=== PATIENT | male | born 1930 | race Caucasian/White ===

== ENCOUNTER → 2016-07-21 | Outpatient (CLI) | payer MEDICARE, BC ==
[~2016-07-21] MED LIST: ADVICOR; ADVIL200 MG; AMLODIPINE5 MG PO; ANTIVERT 25MG25 MG PO; ASPI81EC PO; ASPI81EC86 PO; ASPI81TA; ASPIRIN 32325 MG/TA1 PO; ASPIRIN 32325 MG/TAB PO; ASPIRIN E.C. 8181 MG PO; BENAZEPRIL HCT1 TAB PO; BENAZEPRIL PO; CEPHALEXIN500 M1 PO; CIPRO 500MG TA500 MG PO; COQ(10)1010 MG PO; EPA FISH OIL1000 MG PO; FISH OIL 1000MG1 CAP PO; HCTZ PO; IMDUR 60MG60 MG/TAB PO; IMDUR60 MG PO; JANUVIA25 MG PO; K-TAB10 MEQ PO; KLOR-CON 1010 MEQ PO; LISINOPRIL/HCTZ1 TA1 PO; LISINOPRIL10 MG PO; LOMOTIL 0.025 M1 TAB PO; LOPID 600M600 MG/TAB PO; LOPRESSOR 225 MG/TAB PO; LOPRESSOR PO; LORTAB 5/500 501 TAB PO; MAXIDE; MAXZIDE; MAXZIDE 50 MG-71 TAB PO; MECLIZINE HCL25 M1 PO; MECLIZINE25 MG PO; METOPROLOL SUCC25 M1 PO; MICRO-K 1010 MEQ PO; MULTAQ400 MG PO; NIACIN500 M4 PO; NIASPAN500 MG PO; NITROSTAT0.4 MG/TAB SL; NORCO 325 MG-51 TAB PO; ONGLYZA2.5 MG PO; OSTEO-BI-FLEX 21 TAB PO; PERCOCET 325 MG1 TA2 PO; PLAVIX 75MG TAB75 MG PO; PRADAXA 150MG150 MG PO; PRINZIDE 12.5 M1 TA1 PO; TAMBOCOR 1100 MG/TAB PO; TOPROL XL 25MG25 MG PO; TOPROL XL 50MG50 MG PO; TRIAMTERENE/HCT1 TA2 PO; TRILIPIX 135MG; TRILIPIX45 MG PO; TYLENOL 325MG325 MG PO; TYLENOL 500MG500 MG PO; VALIUM 2MG T2 MG/TAB PO; VITAMIN B121000 MCG PO; VITAMIN D2000 I1 PO; ZOCOR 20MG20 MG PO; ZOCOR20 MG PO; ZOFRAN 4MG T4 MG/TAB PO; [UNRECOGNIZED DRUG - CODE]
== END ==
LOC: COL.RAD 08:26
DX: M25.552 Pain in left hip (principal)
CPT/HCPCS: J3301; Q9967

== ENCOUNTER → 2016-08-27 | Outpatient (CLI) | payer MEDICARE, BC | LOC: COL.RAD 11:18 | DX: M25.552 Pain in left hip (principal) | CPT/HCPCS: J3301; Q9967 ==

== ENCOUNTER 2017-03-09 16:20 | Inpatient (IN) | payer MEDICARE, BC ==
[~2017-03-09] VITALS: Ht 180.3 cm; Wt 95.7 kg
[2017-03-09] VITALS (172 sets, daily range): BP systolic 117–129; BP diastolic 80–91; PULSE 60–120; TEMP 97.9; O2SAT 90–99
[2017-03-09 17:14] LABS: BASO # 0.1 (0.0-0.2); BASO % 0.8 % (0.0-2.0); EOS # 0.1 (0.0-0.7); EOS % 0.7 % (0-4.0); GRAN # 5.7 (1.4-6.5); GRAN % 67.4 % (42.2-75.2); HEMATOCRIT 37.1 % (42.0-52.0); HEMOGLOBIN 12.8 g/dl (13.5-18.0); LYMPH # 1.6 (1.2-3.4); LYMPH % 18.6 % (20.0-51.0); MEAN CELL VOLUME 94 fl (80.0-100.0); MEAN CORPUSCULAR HEMOGLOBIN 32 pg (27.0-31.0); MEAN CORPUSCULAR HGB CONC 35 g/dl (33.0-37.0); MEAN PLATELET VOLUME 10.7 fl (7.4-10.4); PLATELET COUNT 219 K/mm3 (130-400); RED BLOOD COUNT 3.95 M/mm3 (4.20-5.60); REDCELL DISTRIBUTION WIDTH-CV 13.2 % (11.5-14.5); WHITE BLOOD COUNT 8.5 K/mm3 (4.8-10.8)
[2017-03-09 17:17] LABS: INR 1.2 (0.8-3.0); PROTHROMBIN TIME 12.9 SECONDS (9.7-12.8)
[2017-03-09 17:20] LABS: PARTIAL THROMBOPLASTIN TIME 48.1 SECONDS (26.0-37.0)
[2017-03-09 17:25] LABS: ADJUSTED CALCIUM 10.2 mg/dL (8.4-10.2); BILIRUBIN,TOTAL 0.7 mg/dL (0.0-1.0); CALCIUM 10.2 mg/dL (8.4-10.2); CREATININE, serum 1.63 mg/dL (0.66-1.25); MAGNESIUM 1.7 mg/dL (1.6-2.3); POTASSIUM 3.6 mmol/L (3.4-5.0); TOTAL PROTEIN 6.9 gm/dL (6.4-8.2)
[2017-03-09 17:41] LABS: TROPONIN-I 0.073 ng/mL (0.000-0.034)
[2017-03-10] VITALS (470 sets, daily range): BP systolic 99–138; BP diastolic 63–98; PULSE 59–120; TEMP 97.7–98.6; O2SAT 88–100
[2017-03-10 05:31] LABS: BASO % 0.6 % (0.0-2.0); EOS # 0.1 (0.0-0.7); EOS % 1.8 % (0-4.0); GRAN # 3.9 (1.4-6.5); GRAN % 62.6 % (42.2-75.2); LYMPH # 1.4 (1.2-3.4); LYMPH % 21.9 % (20.0-51.0); MEAN CELL VOLUME 96 fl (80.0-100.0); MEAN CORPUSCULAR HGB CONC 33 g/dl (33.0-37.0); MONO # 0.8 (0.1-0.6); MONO % 12.5 % (1.7-9.3); PLATELET COUNT 208 K/mm3 (130-400); RED BLOOD COUNT 3.69 M/mm3 (4.20-5.60); REDCELL DISTRIBUTION WIDTH-CV 13.2 % (11.5-14.5); WHITE BLOOD COUNT 6.3 K/mm3 (4.8-10.8)
[2017-03-10 05:33] LABS: PH 5 (5-8); SQUAMOUS EPITHELIAL None Seen /hpf; URINE APPEARANCE Clear; URINE BACTERIA None Seen /hpf; URINE BILIRUBIN Negative (NEGATIVE); URINE BLOOD Negative (NEGATIVE); URINE COLOR Yellow; URINE GLUCOSE Negative (NEGATIVE); URINE KETONE Negative (NEGATIVE); URINE RBC None Seen /hpf; URINE UROBILINOGEN Negative (NEGATIVE); URINE WBC 0-2 /hpf
[2017-03-10 05:37] LABS: CALCIUM 9.7 mg/dL (8.4-10.2); CREATININE, serum 1.51 mg/dL (0.66-1.25); MAGNESIUM 2.3 mg/dL (1.6-2.3); PHOSPHOROUS 3.7 mg/dL (2.5-4.5); POTASSIUM 3.9 mmol/L (3.4-5.0)
[2017-03-10 05:40] LABS: HEMATOCRIT 35.4 % (42.0-52.0); HEMOGLOBIN 11.8 g/dl (13.5-18.0); MEAN CORPUSCULAR HEMOGLOBIN 32 pg (27.0-31.0)
[2017-03-11 00:58] VITALS: BP 134/67; PULSE 66; TEMP 97.3
[2017-03-11 04:08] VITALS: BP 150/81; PULSE 69; TEMP 98.1
[2017-03-11 08:18] VITALS: BP 126/67; PULSE 61; TEMP 98.2
[2017-03-11 12:07] VITALS: BP 130/72; PULSE 61; TEMP 98.4
== END 2017-03-11 16:20 | disposition home or self-care (01) | DRG 282 ==
LOC: COL.ER 16:20 → ICU 18:25 → MEDICAL 03-10 14:50
PROVIDERS: Emergency Medicine; Internal Medicine
DX: I48.0 Paroxysmal atrial fibrillation (principal); I21.4 Non-ST elevation (NSTEMI) myocardial infarction; I12.9 Hypertensive chronic kidney disease with stage 1 through stage 4 chronic kidney disease, or unspecified chronic kidney disease; E11.22 Type 2 diabetes mellitus with diabetic chronic kidney disease; N18.3 Chronic kidney disease, stage 3 (moderate); Z95.0 Presence of cardiac pacemaker; Z87.891 Personal history of nicotine dependence; Z79.4 Long term (current) use of insulin
CPT/HCPCS: 99223-AI; 99233-AI; 99239; J3475; J7030; J7040; J7050

== ENCOUNTER → 2017-03-09 | Outpatient (CLI) | payer MEDICARE, BC ==
[2017-03-09 11:07] LABS: CALCIUM 10.3 mg/dL (8.4-10.2); CREATININE, serum 1.64 mg/dL (0.66-1.25); MAGNESIUM 1.7 mg/dL (1.6-2.3); POTASSIUM 3.7 mmol/L (3.4-5.0)
[2017-03-09 11:36] LABS: THYROID STIMULATING HORMONE 1.01 uIU/mL (0.465-4.680)
== END ==
LOC: COL.LAB 09:44
PROVIDERS: Nurse Practitioner
DX: I48.91 Unspecified atrial fibrillation (principal)

== ENCOUNTER → 2017-04-04 | Outpatient (CLI) | payer MEDICARE, BC | LOC: SUN.DIA 08:34 | DX: E11.21 Type 2 diabetes mellitus with diabetic nephropathy (principal); E78.5 Hyperlipidemia, unspecified; I67.9 Cerebrovascular disease, unspecified; Z68.30 Body mass index [BMI] 30.0-30.9, adult; Z71.3 Dietary counseling and surveillance; Z87.891 Personal history of nicotine dependence | CPT/HCPCS: G0108 ==

== ENCOUNTER 2017-05-31 07:51 | Emergency (ER) | payer MEDICARE, BC ==
[~2017-05-31] VITALS: Ht 180.3 cm; Wt 99.1 kg
[2017-05-31 07:54] VITALS: TEMP 97
[2017-05-31 08:26] LABS: BASO # 0.1 (0.0-0.2); BASO % 1.5 % (0.0-2.0); EOS # 0.1 (0.0-0.7); EOS % 2.8 % (0-4.0); GRAN # 2.5 (1.4-6.5); GRAN % 53.6 % (42.2-75.2); HEMATOCRIT 40.4 % (42.0-52.0); HEMOGLOBIN 13.8 g/dl (13.5-18.0); LYMPH # 1.3 (1.2-3.4); LYMPH % 27.9 % (20.0-51.0); MEAN CELL VOLUME 96 fl (80.0-100.0); MEAN CORPUSCULAR HEMOGLOBIN 33 pg (27.0-31.0); MEAN CORPUSCULAR HGB CONC 34 g/dl (33.0-37.0); MONO # 0.6 (0.1-0.6); MONO % 13.8 % (1.7-9.3); PLATELET COUNT 255 K/mm3 (130-400); RED BLOOD COUNT 4.23 M/mm3 (4.20-5.60); WHITE BLOOD COUNT 4.6 K/mm3 (4.8-10.8)
[2017-05-31 08:33] LABS: ADJUSTED CALCIUM 9.9 mg/dL (8.4-10.2); ALBUMIN 4.4 gm/dL (3.5-5.0); BILIRUBIN,TOTAL 0.6 mg/dL (0.0-1.0); CALCIUM 10.2 mg/dL (8.4-10.2); CREATININE, serum 1.45 mg/dL (0.66-1.25); POTASSIUM 3.7 mmol/L (3.4-5.0); TOTAL PROTEIN 7.3 gm/dL (6.4-8.2)
[2017-05-31] MEDS ORDERED: PACERONE200 MG PO (08:39)
[2017-05-31] MEDS ORDERED: ELIQUIS 2.5 PO (08:41)
[2017-05-31] MEDS ORDERED: LOPID 600M600 MG/TAB PO (08:41)
[2017-05-31] MEDS ORDERED: IMDUR 60MG60 MG/TAB PO (08:42)
[2017-05-31] MEDS ORDERED: PRINZIDE 12.5 M1 TA1 PO (08:43)
[2017-05-31] MEDS ORDERED: GLUCOPHAGE XR500 M1 PO (08:44)
[2017-05-31] MEDS ORDERED: LOPRESSOR 550 MG/TAB PO (08:44)
[2017-05-31] MEDS ORDERED: TYLENOL 500MG500 MG PO (08:46)
[2017-05-31] MEDS ORDERED: ASPIRIN E.C. 8181 MG PO (08:46)
[2017-05-31] MEDS ORDERED: OMEGA-31 SGL PO (08:48)
[2017-05-31] MEDS ORDERED: THE MEDICINE S200 M2 PO (08:48)
[2017-05-31] MEDS ORDERED: CALCIUM CITRATE1 TA1 PO (08:51)
[2017-05-31] MEDS ORDERED: MOTRIN 200200 MG/TAB PO (08:51)
[2017-05-31] MEDS ORDERED: B-12 500 MCG PO (08:52)
[2017-05-31] MEDS ORDERED: MASON NATURAL2000 IU PO (08:52)
[2017-05-31 09:02] LABS: C-REACTIVE PROTEIN < 0.5 mg/dL (0.0-0.9); TROPONIN-I < 0.012 ng/mL (0.000-0.034)
[2017-05-31] MEDS ORDERED: MEDROL 4MG DOSPA4 MG PO (09:26)
[2017-05-31 09:45] VITALS: BP 148/89; PULSE 59
== END 2017-05-31 09:46 | disposition home or self-care (01) ==
LOC: COL.ER 07:51
PROVIDERS: Family Medicine
DX: M50.30 Other cervical disc degeneration, unspecified cervical region (principal); M48.02 Spinal stenosis, cervical region; I10 Essential (primary) hypertension

== ENCOUNTER 2017-08-15 20:45 | Emergency (ER) | payer MEDICARE, BC ==
[~2017-08-15] VITALS: Ht 177.8 cm; Wt 99.1 kg
[~2017-08-15 20:45] MED LIST changes: +B-12 500 MCG PO; +CALCIUM CITRATE1 TA1 PO; +ELIQUIS 2.5 PO; +GLUCOPHAGE XR500 M1 PO; +LOPRESSOR 550 MG/TAB PO; +MASON NATURAL2000 IU PO; +MEDROL 4MG DOSPA4 MG PO; +MOTRIN 200200 MG/TAB PO; +OMEGA-31 SGL PO; +PACERONE200 MG PO; +THE MEDICINE S200 M2 PO
[2017-08-15 20:48] VITALS: TEMP 98
[2017-08-15 21:44] LABS: BASO # 0.1 (0.0-0.2); BASO % 0.9 % (0.0-2.0); EOS # 0.1 (0.0-0.7); EOS % 1.3 % (0-4.0); GRAN # 4.6 (1.4-6.5); GRAN % 66.1 % (42.2-75.2); HEMATOCRIT 40.2 % (42.0-52.0); HEMOGLOBIN 13.7 g/dl (13.5-18.0); LYMPH # 1.3 (1.2-3.4); LYMPH % 18.4 % (20.0-51.0); MEAN CELL VOLUME 96 fl (80.0-100.0); MEAN CORPUSCULAR HEMOGLOBIN 33 pg (27.0-31.0); MEAN CORPUSCULAR HGB CONC 34 g/dl (33.0-37.0); MEAN PLATELET VOLUME 10.1 fl (7.4-10.4); MONO # 0.9 (0.1-0.6); MONO % 12.9 % (1.7-9.3); PLATELET COUNT 220 K/mm3 (130-400); RED BLOOD COUNT 4.18 M/mm3 (4.20-5.60); REDCELL DISTRIBUTION WIDTH-CV 13.3 % (11.5-14.5)
[2017-08-15 21:55] LABS: ALANINE AMINOTRANSFERASE 24 U/L (21-72); ALBUMIN 4.2 gm/dL (3.5-5.0); ALKALINE PHOSPHATASE 86 U/L (50-136); ANION GAP 14 mmol/L (7-16); AST,SGOT 16 U/L (15-37); BILIRUBIN,TOTAL 0.4 mg/dL (0.0-1.0); BLOOD UREA NITROGEN 30 mg/dL (9-20); CALCIUM 9.6 mg/dL (8.4-10.2); CARBON DIOXIDE 21 mmol/L (22-30); CHLORIDE 107 mmol/L (98-107); CREATININE, serum 1.42 mg/dL (0.66-1.25); GLUCOSE 117 mg/dL (74-106); POTASSIUM 3.5 mmol/L (3.4-5.0); SODIUM 141 mmol/L (137-145); TOTAL PROTEIN 7.2 gm/dL (6.4-8.2)
[2017-08-15 22:07] LABS: TROPONIN-I < 0.012 ng/mL (0.000-0.034)
[2017-08-15 22:24] VITALS: BP 159/84; PULSE 60
[2017-08-15] MEDS ORDERED: AMOXICILLIN 50500 MG PO (22:47)
[2017-08-15] MEDS ORDERED: NORCO 325 MG-51 TAB PO (22:47)
== END 2017-08-15 23:01 | disposition home or self-care (01) ==
LOC: COL.ER 20:45
PROVIDERS: Emergency Medicine
DX: K08.89 Other specified disorders of teeth and supporting structures (principal); I10 Essential (primary) hypertension; E11.9 Type 2 diabetes mellitus without complications; E78.5 Hyperlipidemia, unspecified; E78.00 Pure hypercholesterolemia, unspecified; Z95.5 Presence of coronary angioplasty implant and graft; Z95.1 Presence of aortocoronary bypass graft; Z79.82 Long term (current) use of aspirin; Z79.84 Long term (current) use of oral hypoglycemic drugs

== ENCOUNTER 2017-08-31 03:34 | Emergency (ER) | payer MEDICARE, BC ==
[~2017-08-31] VITALS: Ht 177.8 cm; Wt 99.1 kg
[~2017-08-31 03:34] MED LIST changes: +AMOXICILLIN 50500 MG PO
[2017-08-31 03:38] VITALS: TEMP 98
[2017-08-31 04:14] LABS: BASO # 0.1 (0.0-0.2); EOS # 0.1 (0.0-0.7); EOS % 1.1 % (0-4.0); GRAN # 4.8 (1.4-6.5); GRAN % 66.5 % (42.2-75.2); HEMATOCRIT 38.2 % (42.0-52.0); LYMPH # 1.3 (1.2-3.4); LYMPH % 17.9 % (20.0-51.0); MEAN CELL VOLUME 96 fl (80.0-100.0); MEAN CORPUSCULAR HEMOGLOBIN 33 pg (27.0-31.0); MEAN CORPUSCULAR HGB CONC 34 g/dl (33.0-37.0); MEAN PLATELET VOLUME 10.1 fl (7.4-10.4); MONO % 13.4 % (1.7-9.3); PLATELET COUNT 215 K/mm3 (130-400); REDCELL DISTRIBUTION WIDTH-CV 13.2 % (11.5-14.5)
[2017-08-31 04:24] LABS: ALBUMIN 4.1 gm/dL (3.5-5.0); BILIRUBIN,TOTAL 0.4 mg/dL (0.0-1.0); CALCIUM 9.5 mg/dL (8.4-10.2); CREATININE, serum 1.42 mg/dL (0.66-1.25); POTASSIUM 3.7 mmol/L (3.4-5.0); TOTAL PROTEIN 6.9 gm/dL (6.4-8.2)
[2017-08-31 05:40] VITALS: BP 156/91; PULSE 70
== END 2017-08-31 05:55 | disposition home or self-care (01) ==
LOC: COL.ER 03:34
PROVIDERS: Emergency Medicine
DX: K91.841 Postprocedural hemorrhage of a digestive system organ or structure following other procedure (principal); E11.9 Type 2 diabetes mellitus without complications; I10 Essential (primary) hypertension; I25.10 Atherosclerotic heart disease of native coronary artery without angina pectoris; I48.91 Unspecified atrial fibrillation; E78.00 Pure hypercholesterolemia, unspecified; Z79.01 Long term (current) use of anticoagulants; Z79.82 Long term (current) use of aspirin; Z79.84 Long term (current) use of oral hypoglycemic drugs

== ENCOUNTER 2017-09-04 12:10 | Emergency (ER) | payer MEDICARE, BC ==
[~2017-09-04] VITALS: Ht 177.8 cm; Wt 99.1 kg
[2017-09-04 12:31] VITALS: TEMP 97.9
[2017-09-04 13:09] LABS: COLLECTION METHOD CLEAN CATCH
[2017-09-04 13:16] LABS: MUCOUS Present /lpf; PH 5 (5-8); SQUAMOUS EPITHELIAL 0-2 /hpf; URINE APPEARANCE Clear; URINE BACTERIA None Seen /hpf; URINE BILIRUBIN Negative (NEGATIVE); URINE BLOOD Negative (NEGATIVE); URINE COLOR Yellow; URINE GLUCOSE Negative (NEGATIVE); URINE KETONE Negative (NEGATIVE); URINE LEUKOCYTE ESTERASE Negative (NEGATIVE); URINE NITRATE Negative (NEGATIVE); URINE PROTEIN(semi-quant) Negative (NEGATIVE); URINE RBC None Seen /hpf; URINE UROBILINOGEN Negative (NEGATIVE)
[2017-09-04 13:32] LABS: BASO # 0.1 (0.0-0.2); BASO % 0.8 % (0.0-2.0); EOS # 0.1 (0.0-0.7); EOS % 1.9 % (0-4.0); GRAN # 5.3 (1.4-6.5); GRAN % 70.1 % (42.2-75.2); LYMPH # 1.2 (1.2-3.4); LYMPH % 16.5 % (20.0-51.0); MEAN CELL VOLUME 96 fl (80.0-100.0); MEAN CORPUSCULAR HEMOGLOBIN 32 pg (27.0-31.0); MEAN CORPUSCULAR HGB CONC 33 g/dl (33.0-37.0); MEAN PLATELET VOLUME 10.4 fl (7.4-10.4); MONO # 0.8 (0.1-0.6); MONO % 10.2 % (1.7-9.3); PLATELET COUNT 227 K/mm3 (130-400); RED BLOOD COUNT 3.75 M/mm3 (4.20-5.60); REDCELL DISTRIBUTION WIDTH-CV 13.2 % (11.5-14.5)
[2017-09-04 13:33] LABS: HEMATOCRIT 36.1 % (42.0-52.0)
[2017-09-04 13:44] LABS: ALBUMIN 3.9 gm/dL (3.5-5.0); BILIRUBIN,TOTAL 0.3 mg/dL (0.0-1.0); CALCIUM 9.2 mg/dL (8.4-10.2); CREATININE, serum 1.41 mg/dL (0.66-1.25); POTASSIUM 3.7 mmol/L (3.4-5.0); TOTAL PROTEIN 6.7 gm/dL (6.4-8.2)
[2017-09-04 13:47] LABS: C-REACTIVE PROTEIN 0.5 mg/dL (0.0-0.9)
[2017-09-04 13:53] LABS: TROPONIN-I 0.013 ng/mL (0.000-0.034)
[2017-09-04] MEDS ORDERED: NORCO 325 MG-51 TAB PO (15:23)
[2017-09-04 15:37] VITALS: BP 149/80; PULSE 60
== END 2017-09-04 15:50 | disposition home or self-care (01) ==
LOC: COL.ER 12:10
PROVIDERS: Emergency Medicine
DX: S33.5XXA Sprain of ligaments of lumbar spine, initial encounter (principal); R10.9 Unspecified abdominal pain; I48.91 Unspecified atrial fibrillation; I25.10 Atherosclerotic heart disease of native coronary artery without angina pectoris; E11.9 Type 2 diabetes mellitus without complications; I10 Essential (primary) hypertension; E78.5 Hyperlipidemia, unspecified; Z87.442 Personal history of urinary calculi; Z79.01 Long term (current) use of anticoagulants; Z79.84 Long term (current) use of oral hypoglycemic drugs; X58.XXXA Exposure to other specified factors, initial encounter
CPT/HCPCS: J2270; J2405; J7030

== ENCOUNTER 2018-03-02 17:32 | Emergency (ER) | payer MEDICARE, BC ==
[~2018-03-02] VITALS: Ht 180.3 cm; Wt 95.9 kg
[~2018-03-02 17:32] MED LIST changes: +ASPIRIN 81M81 MG/TA2 PO; +FLEXERIL 1010 MG/TAB PO; +MAGNESIUM ELEME30 MG PO; +MOBIC 7.5MG7.5 MG PO; +PROTONIX 40MG T40 MG PO; +TYLENOL 8 HR PO; +VALIUM 5MG T5 MG/TAB PO; +ZESTRIL 20MG TA20 MG PO
[2018-03-02 17:34] VITALS: BP 146/79; PULSE 82; TEMP 98.2
[2018-03-02 18:15] LABS: BASO # 0.1 (0.0-0.2); BASO % 0.6 % (0.0-2.0); EOS # 0.1 (0.0-0.7); EOS % 0.6 % (0-4.0); GRAN # 6.2 (1.4-6.5); GRAN % 74.8 % (42.2-75.2); HEMATOCRIT 38.9 % (42.0-52.0); HEMOGLOBIN 13.3 g/dl (13.5-18.0); LYMPH # 0.9 (1.2-3.4); LYMPH % 11.3 % (20.0-51.0); MEAN CELL VOLUME 94 fl (80.0-100.0); MEAN CORPUSCULAR HEMOGLOBIN 32 pg (27.0-31.0); MEAN CORPUSCULAR HGB CONC 34 g/dl (33.0-37.0); MONO % 11.8 % (1.7-9.3); PLATELET COUNT 238 K/mm3 (130-400); RED BLOOD COUNT 4.16 M/mm3 (4.20-5.60); REDCELL DISTRIBUTION WIDTH-CV 13.4 % (11.5-14.5)
[2018-03-02 18:32] LABS: ALBUMIN 3.8 gm/dL (3.5-5.0); BILIRUBIN,TOTAL 0.5 mg/dL (0.0-1.0); CALCIUM 9.5 mg/dL (8.4-10.2); CREATININE, serum 1.51 mg/dL (0.66-1.25); POTASSIUM 3.5 mmol/L (3.4-5.0); TOTAL PROTEIN 6.8 gm/dL (6.4-8.2)
[2018-03-02 18:33] LABS: C-REACTIVE PROTEIN 0.5 mg/dL (0.0-0.9)
[2018-03-02 19:15] LABS: COLLECTION METHOD CLEAN CATCH
[2018-03-02 19:42] LABS: PH 5 (5-8); SQUAMOUS EPITHELIAL None Seen /hpf; URINE APPEARANCE Clear; URINE BACTERIA None Seen /hpf; URINE BILIRUBIN Negative (NEGATIVE); URINE BLOOD Negative (NEGATIVE); URINE COLOR Yellow; URINE GLUCOSE Negative (NEGATIVE); URINE KETONE Negative (NEGATIVE); URINE LEUKOCYTE ESTERASE Negative (NEGATIVE); URINE NITRATE Negative (NEGATIVE); URINE PROTEIN(semi-quant) Negative (NEGATIVE); URINE RBC 0-2 /hpf; URINE UROBILINOGEN Negative (NEGATIVE)
[2018-03-02] MEDS ORDERED: NORCO 325 MG-51 TAB PO (19:44)
== END 2018-03-02 20:13 | disposition home or self-care (01) ==
LOC: COL.ER 17:32
PROVIDERS: Emergency Medicine
DX: G89.29 Other chronic pain (principal); M54.5 Low back pain; E11.9 Type 2 diabetes mellitus without complications; I10 Essential (primary) hypertension; K21.9 Gastro-esophageal reflux disease without esophagitis; E78.00 Pure hypercholesterolemia, unspecified; Z79.01 Long term (current) use of anticoagulants; Z79.82 Long term (current) use of aspirin; Z79.84 Long term (current) use of oral hypoglycemic drugs
CPT/HCPCS: J1170; J2060; J2405; J7030

== ENCOUNTER → 2018-04-13 | Outpatient (CLI) | payer MEDICARE, BC | LOC: SUN.DIA 04-04 14:43 | DX: E11.9 Type 2 diabetes mellitus without complications (principal); E78.5 Hyperlipidemia, unspecified; F17.210 Nicotine dependence, cigarettes, uncomplicated | CPT/HCPCS: G0108 ==

== ENCOUNTER 2018-05-14 07:04 | Emergency (ER) | payer MEDICARE, BC ==
[~2018-05-14] VITALS: Ht 180.3 cm; Wt 95.9 kg
[2018-05-14 07:10] VITALS: TEMP 98
[2018-05-14 07:50] LABS: BASO % 0.7 % (0.0-2.0); EOS % 0.7 % (0-4.0); GRAN # 3.5 (1.4-6.5); GRAN % 63.5 % (42.2-75.2); HEMATOCRIT 37.4 % (42.0-52.0); HEMOGLOBIN 12.7 g/dl (13.5-18.0); LYMPH # 1.2 (1.2-3.4); LYMPH % 22.2 % (20.0-51.0); MEAN CELL VOLUME 94 fl (80.0-100.0); MEAN CORPUSCULAR HEMOGLOBIN 32 pg (27.0-31.0); MEAN CORPUSCULAR HGB CONC 34 g/dl (33.0-37.0); MEAN PLATELET VOLUME 9.9 fl (7.4-10.4); MONO # 0.7 (0.1-0.6); MONO % 12.4 % (1.7-9.3); PLATELET COUNT 229 K/mm3 (130-400)
[2018-05-14 08:07] LABS: ALANINE AMINOTRANSFERASE 25 U/L (21-72); ALBUMIN 3.7 gm/dL (3.5-5.0); ALKALINE PHOSPHATASE 77 U/L (50-136); ANION GAP 6 mmol/L (7-16); AST,SGOT 17 U/L (15-37); BILIRUBIN,TOTAL 0.6 mg/dL (0.0-1.0); BLOOD UREA NITROGEN 24 mg/dL (9-20); CALCIUM 9.8 mg/dL (8.4-10.2); CARBON DIOXIDE 25 mmol/L (22-30); CHLORIDE 110 mmol/L (98-107); CREATININE, serum 1.38 mg/dL (0.66-1.25); GLUCOSE 94 mg/dL (74-106); POTASSIUM 3.8 mmol/L (3.4-5.0); SODIUM 141 mmol/L (137-145); TOTAL PROTEIN 6.5 gm/dL (6.4-8.2)
[2018-05-14 08:10] LABS: C-REACTIVE PROTEIN < 0.5 mg/dL (0.0-0.9)
[2018-05-14] MEDS ORDERED: ANTIVERT 25MG25 MG PO (11:47)
[2018-05-14] MEDS ORDERED: APRESOLINE 25MG25 MG PO (11:47)
[2018-05-14 12:18] VITALS: BP 155/89; PULSE 60
== END 2018-05-14 12:20 | disposition home or self-care (01) ==
LOC: COL.ER 07:04
PROVIDERS: Emergency Medicine
DX: I10 Essential (primary) hypertension (principal); R42 Dizziness and giddiness; I48.91 Unspecified atrial fibrillation; I25.10 Atherosclerotic heart disease of native coronary artery without angina pectoris; K21.9 Gastro-esophageal reflux disease without esophagitis; E78.00 Pure hypercholesterolemia, unspecified; Z79.82 Long term (current) use of aspirin
CPT/HCPCS: J2060; J7030